=== PATIENT | female | born 1935 | race Caucasian/White ===

== ENCOUNTER 2016-09-26 06:53 | Emergency (ER) | payer MEDICAID, MEDICARE ==
[~2016-09-26] VITALS: Ht 157.5 cm; Wt 45.4 kg
[2016-09-26 06:55] VITALS: BP 129/80
[2016-09-26 09:00] LABS: HEMOGLOBIN 14.4 g/dL (11.7-16.4)
[2016-09-26 09:10] LABS: ACETAMINOPHEN < 2 mcg/mL (10-30); BLOOD UREA NITROGEN 24 mg/dL (7-18)
[2016-09-26 09:46] LABS: PATH.CAST-FLAG NOT PRESENT; SPERM-FLAG NOT PRESENT; SRC-FLAG NOT PRESENT; XTAL-FLAG NOT PRESENT; YLC-FLAG NOT PRESENT
== END 2016-09-26 11:06 | disposition home or self-care (01) ==
LOC: ED 08:00
DX: N30.00 Acute cystitis without hematuria (principal); E86.0 Dehydration; T14.90 Injury, unspecified; V49.49XA Driver injured in collision with other motor vehicles in traffic accident, initial encounter; Y93.89 Activity, other specified; Y92.89 Other specified places as the place of occurrence of the external cause; Y99.8 Other external cause status
CPT/HCPCS: 36415; 80048; 80307; 80329; 81001; 82040; 83605; 85025; 87077; 87086; 87186; 99284; G0480